=== PATIENT | male | born 1980 | race Caucasian/White ===

== ENCOUNTER 2023-03-19 20:09 | Emergency (ER) | payer BC, SELFPAY ==
[2023-03-19 20:31] VITALS: BP 181/95; PULSE 84; RESP 16; TEMP 36.6
--- NOTE | 2023-03-19 20:46 | ED.GENADUL_ITS ---
Discharge Plan Disposition Patient Disposition: Home Condition: Stable Discharge Details Clinical Impression: Laceration of skin of left lower leg Primary Care Provider: Unknown,Unknown ED Provider: Kajal Jackson Home Meds and New Rx's Prescriptions: No Action No Known Home Meds Discharge Instructions Instructions: Laceration (ED) Additional Instructions: Have sutures removed in 7 to 10 days. You may return here, PCP or urgent care what ever is more convenient for you. Follow-up return sooner for any signs of infection, red streaks, drainage swelling or concerns. Keep clean and dry. Covered when out and about. After 12 to 24 hours you may wash under running soap and water in the shower. No soaking no swimming. Follow up with primary care provider in 3-5 days. Return to ED sooner if any worsening or concerns. Increase oral fluids. Please take Tylenol or Ibuprofen with food every 4-6 hours as needed for pain and swelling., Apply ice There is a chance that the flap may not reattach and turn black and fall off. Medical Decision Making 43-year-old male presents to the ER with a chief complaint of left anterior maya laceration which occurred approximately 30 minutes prior to arrival. Patient was biking when his leg slipped hitting the pedal. He reports that he is out of date for his tetanus vaccination. He is ambulatory upon arrival. No other complaints or injuries noted. He has an arrow shaped laceration noted with a flap. Bleeding is controlled with pressure. Denies any falls. 2049: Wound anesthetized with 1% lidocaine with epinephrine, patient tolerated with some difficulty, will irrigate with sterile normal saline and plan to repair laceration with sutures. Tdap ordered. Laceration repaired with 6 simple interrupted sutures, wound partially approximated, patient tolerated well anesthesia achieved. Cleaned with chlorhexidine and normal saline. Will apply dressing discussed home care and have sutures removed in 7 days. Given instructions that the flap may not revitalize. Discussed strict return instructions occluding infection. This text was generated using [employer] system, please disregard any oddities of phrase or misspellings. HPI General Mode of arrival: ambulatory . Date/Time Provider Initiated Documentation: 03/19/23 20:33 . Limitations to Documentation: no limitations . Information obtained by: patient, RN notes reviewed and old records reviewed . HPI Narrative: 43-year-old male presents to the ER with a chief complaint of left anterior maya laceration which occurred approximately 30 minutes prior to arrival. Patient was biking when his leg slipped hitting the pedal. He reports that he is out of date for his tetanus vaccination. He is ambulatory upon arrival. No other complaints or injuries noted. He has an arrow shaped laceration noted with a flap. Bleeding is controlled with pressure. Denies any falls. Related Data Home Medications Medication Instructions Recorded Confirmed Unknown [No Known Home Meds] 03/19/23 03/19/23 Allergies Allergy/AdvReac Type Severity Reaction Status Date / Time No Known Allergies Allergy Unverified 03/19/23 20:38 General Stated Complaint: Laceration DANK: 4 Review of Systems All systems reviewed & are unremarkable except as noted in HPI and below Musculoskeletal Musculoskeletal: Reports as per HPI Integumentary/Breasts Skin/Breast: Reports as per HPI and Reports wounds PFSH All Active Problems (Updated 03/19/23 @ 21:50 by Kajal Jackson NP) Laceration of skin of left lower leg (Acute) Social History Smoking/Tobacco Use Status: Never Smoking risk assessment performed?: Yes Alcohol Intake: current Alcohol Intake frequency: a few times a week Drug use: Occasionally Substance use type: marijuana Do you feel safe at home: Yes Do you feel safe in your relationship?: Yes Exam Cardio Rate: regular rate Rhythm: regular rhythm Heart Sounds: S1 normal and S2 normal Back/Spine/Pelvis Cervical Spine: normal cervical lordosis and cervical ROM normal Extrem General: normal to inspection, full ROM, capillary refill normal and normal exam except as noted Left lower extremity: lower leg Details: laceration distal lower leg anterior Details: irregular, Y-shaped, flap, contaminated, involving subcutaneous tissue, with motor nerve function intact and with sensation intact Upper/lower leg/hip images: 1. Laceration and avulsion with flap Course Vital Signs Vital signs: Vital Signs Temperature 36.6 C 03/19/23 20:31 Pulse 84 03/19/23 20:31 Respiratory Rate 16 03/19/23 20:31 Blood Pressure 181/95 H 03/19/23 20:31 Temperature 36.6 C 03/19/23 20:31 Pulse 84 03/19/23 20:31 Respiratory Rate 16 03/19/23 20:31 Respiratory Effort Normal 03/19/23 20:35 Blood Pressure 181/95 H 03/19/23 20:31 Pain Level 5 03/19/23 20:31 Procedures Laceration Laceration 1: Site: lower extremity Side (If applicable): left Size (cm): 3 Description: flap (V shaped) and irregular Depth: simple, single layer Local Anesthetic: Lidocaine 1% and with Epi Amount of anesthesia used (mL): 3 Pre-repair: wound explored and irrigated extensively Skin layer closed with: nylon Size (cm): 4-0 Number of sutures: 6 Technique: simple, interrupted Size: 4-0
== END 2023-03-19 21:58 | disposition home or self-care (01) ==
PROVIDERS: Emergency Provider Registered Nurse Emergency
DX: S81.812A Laceration without foreign body, left lower leg, initial encounter (principal); W22.8XXA Striking against or struck by other objects, initial encounter; Y93.55 Activity, bike riding; Y92.89 Other specified places as the place of occurrence of the external cause; Y99.9 Unspecified external cause status; Z23 Encounter for immunization
CPT/HCPCS: 12002; 90472; 99282